=== PATIENT | male | born 1950 | race Caucasian/White ===

== ENCOUNTER 2019-07-11 11:33 | Emergency (ER) | payer MEDICARE, SELFPAY ==
[2019-07-11 11:44] VITALS: BP 118/80; PULSE 113; RESP 20; TEMP 36.8; O2SAT 98
--- NOTE | 2019-07-11 11:54 | ED.WOUNDLAC ---
HPI - Wound/Laceration General Chief Complaint: Wound/Laceration Stated Complaint: injury to face Time Seen by Provider: 07/11/19 11:55 Source: patient and RN notes reviewed History of Present Illness HPI narrative: Patient is a 69-year-old male that presents the urgent care with complaints of facial injuries, due to fall. Patient states he was trying to repair his lawnmower and believes his right great toe got stuck, causing him to face plant to the pavement. Patient denies any loss of consciousness. Denies any vision changes, nausea, vomiting, headache. Patient is not on any blood thinners. Patient did have tennis shoes on at the time but does have a laceration over the right great toe. Patient also has multiple facial injuries with lacerations and involvement of the nasal bridge, vestibule, nasal tip. No other acute complaints. No acute distress noted. Patient aware the plan of care. Related Data Home Medications Medication Instructions Recorded Confirmed atorvastatin 80 mg PO DAILY 07/11/19 07/11/19 bupropion HCl 200 mg PO DAILY 07/11/19 07/11/19 buspirone 15 mg PO DAILY 07/11/19 07/11/19 ezetimibe 10 mg PO DAILY 07/11/19 07/11/19 fluoxetine 40 mg PO DAILY 07/11/19 07/11/19 hydrochlorothiazide 12.5 mg PO QMWF 07/11/19 07/11/19 lisinopril-hydrochlorothiazide 1 tablet PO DAILY 07/11/19 07/11/19 metformin 500 mg PO DAILY 07/11/19 07/11/19 ropinirole 0.25 mg PO DAILY 07/11/19 07/11/19 Allergies Allergy/AdvReac Type Severity Reaction Status Date / Time No Known Allergies Allergy Verified 07/11/19 11:48 Review of Systems Review of Systems: Narrative: CONSTITUTIONAL: Denies fever, chills, or sweats. EYES: Denies visual changes, redness, or discharge. ENT: Denies rhinorrhea, congestion, sore throat, or otalgia. Reports of a laceration to the inside of the upper lip CARDIOVASCULAR: Denies chest pain, palpitations, or edema. RESPIRATORY: Denies cough or dyspnea. GASTROINTESTINAL: Denies abdominal pain, nausea, vomiting, or diarrhea. GENITOURINARY: Denies dysuria or hematuria. SKIN: reports of nasal, facial and right great toe laceration MUSCULOSKELETAL: Denies back pain, joint pain, or myalgia. NEUROLOGIC: Denies headache, numbness, or weakness. All other systems reviewed are negative, except as documented in HPI. PMFSH Comments At the time of my signature, I reviewed and agree with the nursing past medical, surgical, social, and family history. There is no relevant family history pertinent to the patient complaint. Exam Narrative: Exam Narrative: GENERAL: This is a well-nourished, well-developed patient, in no apparent distress. HEAD: normocephalic, atraumatic. EYES: PERRL. Sclera clear/white. Vision is grossly intact. EARS: External ears normal NOSE: External nose normal with no obvious nasal discharge THROAT: Mucous membranes moist, posterior pharynx clear. Approximately 0.25- 0.5 cm avulsion lacerations to the inside of the upper lip, frenulum intact. NECK: Neck supple CARDIOVASCULAR: Regular rate and rhythm without murmurs, gallops, or rubs. RESPIRATORY: Clear to auscultation. Breath sounds equal bilaterally. SKIN: Left midline jagged facial laceration 3 cm, 1.5 cm abrasion/laceration to the top of the right great toe, less than 1 cm linear laceration to the medial aspect of the right eyebrow, large abrasion to the nasal bridge, 1 cm lack to the nasal vestibule, nasal tip avulsion NEURO: awake, alert, and oriented to person, place and time. There were no obvious focal neurologic abnormalities. EXTREMITIES: No clubbing, cyanosis, or edema. Capillary refill less than 2 seconds to lower right extremity with positive strong right pedal pulse. Course Vital Signs Vital signs: Vital Signs Temperature 98.3 F 07/11/19 11:44 Pulse Rate 113 H 07/11/19 11:44 Respiratory Rate 20 07/11/19 11:44 Blood Pressure 118/80 07/11/19 11:44 Pulse Oximetry 98 07/11/19 11:44 Temperature 98.3 F 07/11/19 11:44 Puls
== END 2019-07-11 12:20 | disposition short-term general hospital (02) ==
PROVIDERS: Emergency Provider Nurse Practitioner Family
DX: S01.81XA Laceration without foreign body of other part of head, initial encounter (principal); S91.111A Laceration without foreign body of right great toe without damage to nail, initial encounter; S01.111A Laceration without foreign body of right eyelid and periocular area, initial encounter; S01.21XA Laceration without foreign body of nose, initial encounter; W18.39XA Other fall on same level, initial encounter
CPT/HCPCS: 99212; G0463